=== PATIENT | male | born 1950 | race Caucasian/White ===

== ENCOUNTER 2024-03-11 12:43 | Observation (INO) ==
[2024-03-11] MEDS ORDERED: IOPAMIDOL 100 ML BOTTLE IV ONE (12:44)
[2024-03-11] MEDS: EPINEPHrine 1 MG/ML VIAL SQ ONE (13:07)
[2024-03-11] MEDS: methylPREDNISolone SOD SUCC 125 MG/2 ML VIAL IV ONE (13:10)
[2024-03-11] MEDS: 0.9 % SODIUM CHLORIDE 1,000 ML IV SCH ×2 (13:11→17:30)
[2024-03-11] MEDS: FAMOTIDINE/PF 20 MG/2 ML VIAL IV ONE (13:13)
[2024-03-11] MEDS: diphenhydrAMINE 50 MG/ML VIAL IV ONE (13:13)
[2024-03-11 13:24] LABS: Basophils # (Auto) 0.04 K/mcL (0.00-0.30); Basophils % (Auto) 0.2 % (0.0-2.0); Eosinophils # (Auto) 0.01 K/mcL (0.00-0.70); Eosinophils % (Auto) 0 % (0.0-7.0); Hematocrit 47.6 % (40.1-51.0); Hemoglobin 15.9 g/dL (13.7-17.5); Lymphocytes # (Auto) 1.62 K/mcL (1.50-4.80); Lymphocytes % (Auto) 8.1 % (15.5-49.0); Mean Cell Volume 89.1 fL (80.0-100.0); Mean Corpuscular HGB Conc 33.4 g/dL (31.0-36.0); Mean Platelet Volume 11.5 fL (8.8-12.5); Monocytes # (Auto) 1.77 K/mcL (0.10-0.90); Monocytes % (Auto) 8.8 % (1.0-12.0); Neutrophils % (Auto) 82.5 % (38.0-78.0); Platelet Count 270 K/mcL (140-440); RBC 5.34 M/mcL (4.63-6.08)
[2024-03-11 13:50] LABS: INR 1.8 (0.9-1.1); Prothrombin Time 21.3 sec (11.9-14.5)
[2024-03-11 13:50] LABS: ALT/SGPT 10 U/L (<40); AST/SGOT 13 U/L (<40); Albumin 4.1 gm/dL (3.2-5.2); Albumin/Globulin Ratio 1.1 (1.0-2.3); Alkaline Phosphatase 120 U/L (39-117); Bilirubin,Total 1.3 mg/dL (0.1-1.0); Blood Urea Nitrogen 25 mg/dL (8-23); Calcium 9.7 mg/dL (8.6-10.4); Carbon Dioxide 20 mmol/L (22-30); Chloride 97 mmol/L (96-108); Globulin 3.6 gm/dL (2.2-3.7); Glomerular Filtration Rate 54; Glucose 308 mg/dL (70-105); Potassium 4.5 mmol/L (3.3-5.1); Sodium 134 mmol/L (133-145)
[2024-03-11] MEDS: ONDANSETRON 4 MG/2 ML VIAL IV ONE (14:20)
[2024-03-11 16:43] LABS: Appearance,Urine Clear (Clear); Bilirubin,Urine Negative (Negative); Color,Urine Yellow; Glucose,Urine (UA) 500 mg/dL (Negative); Ketones,Urine 40 mg/dL (Negative); Leukocyte Esterase,Urine Negative /uL (Negative); Nitrate,Urine Negative (Negative); Protein,Urine 100 mg/dL (Negative); Specific Gravity,Urine 1.025 (1.000-1.035); Urine Blood Negative ery/mcL (Negative); Urine RBC 0 /hpf (0-3); Urine Squamous Epithelial Cell 0 /hpf (0-4); Urine WBC 0 /hpf (0-4); Urobilinogen,Urine Normal
[2024-03-11] MEDS ORDERED: ONDANSETRON 4 MG/2 ML VIAL IV PRN (20:09)
[2024-03-11] MEDS ORDERED: DEXTROSE 31 GM ORAL.SUSP PO PRN (20:09)
[2024-03-11] MEDS ORDERED: POLYETHYLENE GLYCOL 3350 17 GM PACKET PO PRN (20:09)
[2024-03-11] MEDS ORDERED: DEXTROSE 50% 50 ML VIAL IV PRN (20:09)
[2024-03-11] MEDS ORDERED: SENNOSIDES 1 TABLET PO PRN (20:09)
[2024-03-11] MEDS ORDERED: IPRATROPIUM/ALBUTEROL 3 ML AMPUL.NEB NEB PRN (20:09)
[2024-03-11] MEDS ORDERED: EPINEPHrine 1 MG/ML VIAL IM PRN (20:09)
[2024-03-11] MEDS: CETIRIZINE 10 MG TABLET PO SCH (20:35)
[2024-03-11] MEDS: INSULIN GLARGINE, HUMAN 1 UNIT/0.01 ML SQ SCH (20:35)
[2024-03-11] MEDS: INSULIN LISPRO 1 UNIT/0.01 ML UNIT SQ SCH (20:36)
[2024-03-11] MEDS: WARFARIN 5 MG TABLET PO SCH (20:41)
[2024-03-11] MEDS: FAMOTIDINE/PF 20 MG/2 ML VIAL IV SCH (20:42)
[2024-03-11 20:53] LABS: INR 1.9 (0.9-1.1); Prothrombin Time 22.3 sec (11.9-14.5)
[2024-03-11 20:58] LABS: Thyroid Stimulating Hormone 1.76 uIU/mL (0.27-5.01)
[2024-03-11] MEDS: 0.9 % SODIUM CHLORIDE 250 ML IV SCH (21:43)
[2024-03-11 22:02] LABS: Free T4 (Free Thyroxine) 1.29 ng/dL (0.93-1.70)
[2024-03-11] MEDS: 0.9 % SODIUM CHLORIDE 10 ML SYRINGE IV SCH (23:05)
[2024-03-12 05:37] LABS: Basophils # (Auto) 0 K/mcL (0.00-0.30); Basophils % (Auto) 0 % (0.0-2.0); Eosinophils # (Auto) 0 K/mcL (0.00-0.70); Eosinophils % (Auto) 0 % (0.0-7.0); Lymphocytes % (Auto) 5.7 % (15.5-49.0); Mean Cell Volume 90.1 fL (80.0-100.0); Mean Corpuscular HGB Conc 33.3 g/dL (31.0-36.0); Mean Platelet Volume 11.1 fL (8.8-12.5); Monocytes # (Auto) 0.38 K/mcL (0.10-0.90); Monocytes % (Auto) 2.7 % (1.0-12.0); Neutrophils % (Auto) 91.3 % (38.0-78.0); Platelet Count 227 K/mcL (140-440); RBC 4.66 M/mcL (4.63-6.08); Red Cell Distribution Width 13.3 % (11.5-14.5); WBC 14.1 K/mcL (4.5-11.0)
[2024-03-12 06:31] LABS: ALT/SGPT 9 U/L (<40); AST/SGOT 10 U/L (<40); Albumin 3.7 gm/dL (3.2-5.2); Albumin/Globulin Ratio 1.1 (1.0-2.3); Alkaline Phosphatase 101 U/L (39-117); Bilirubin,Direct 0.6 mg/dL (<0.3); Bilirubin,Total 1.1 mg/dL (0.1-1.0); Blood Urea Nitrogen 34 mg/dL (8-23); Calcium 9.3 mg/dL (8.6-10.4); Carbon Dioxide 21 mmol/L (22-30); Chloride 100 mmol/L (96-108); Globulin 3.4 gm/dL (2.2-3.7); Glomerular Filtration Rate 54; Glucose 338 mg/dL (70-105); Lactate Dehydrogenase 126 U/L (135-225); Phosphorous 2.4 mg/dL (2.5-4.5); Potassium 4.5 mmol/L (3.3-5.1); Prothrombin Time 22.8 sec (11.9-14.5); Sodium 136 mmol/L (133-145); Triglycerides 89 mg/dL (<150); Uric Acid 8.9 mg/dL (2.5-8.0)
[2024-03-12] MEDS ORDERED: METHOCARBAMOL 500 MG TABLET PO PRN (07:45)
[2024-03-12] MEDS ORDERED: HYDROcodone/APAP 5/325MG TABLET PO PRN (07:51)
[2024-03-12] MEDS: INSULIN LISPRO 1 UNIT/0.01 ML UNIT SQ SCH (08:07)
[2024-03-12] MEDS: INSULIN GLARGINE, HUMAN 1 UNIT/0.01 ML SQ SCH (08:08)
[2024-03-12] MEDS ORDERED: methylPREDNISolone SOD SUCC 125 MG/2 ML VIAL IV SCH (09:00)
[2024-03-12] MEDS: predniSONE 20 MG TABLET PO SCH (09:05)
[2024-03-12] MEDS: CARVEDILOL 12.5 MG TABLET PO SCH (09:05)
[2024-03-12] MEDS: FAMOTIDINE 20 MG TABLET PO SCH (09:06)
[2024-03-12] MEDS: ATORVASTATIN 40 MG TABLET PO SCH (09:06)
[2024-03-12] MEDS: EZETIMIBE 10 MG TABLET PO SCH (09:07)
[2024-03-12] MEDS: WARFARIN 5 MG TABLET PO SCH (15:30)
[2024-03-13] MEDS ORDERED: FLU VACC TS2024-25(65YR UP)/PF 180 MCG/0.5 ML SYRINGE IM ONE (06:00)
[2024-03-16 05:10] LABS: TRYPTASE-SO 4.1 ug/L (2.2-13.2)
== END 2024-03-12 18:16 | disposition home or self-care (01) ==
LOC: ICU 12:43 → ED 12:43 → ICU 19:35
PROVIDERS: ADMIT Internal Medicine; ATTEND Student in an Organized Health Care Education/Training Program